=== PATIENT | female | born 1995 ===

== ENCOUNTER 2021-11-05 11:18 | Emergency (ER) | payer SELFPAY ==
[2021-11-05] MEDS ORDERED: HYDROmorphone 1 MG/ML Syringe IVPUSH STA (12:45)
[2021-11-05] MEDS ORDERED: Sodium Chloride 0.9% 1,000 ML IV SCH (12:45)
[2021-11-05] MEDS ORDERED: Sodium Chloride 0.9% 10 ML Syringe FLUSH PRN ×2 (12:45→13:54)
[2021-11-05] MEDS ORDERED: Ondansetron 4 MG/2 ML SDV IVPUSH ONE (12:45)
[2021-11-05 13:29] LABS: ESTIMATED GFR 122 mL/min (>60)
[2021-11-05] MEDS ORDERED: Iopamidol 612 MG/ML 100 ML Bottle IVPUSH ONE (13:54)
== END 2021-11-05 15:30 | disposition home or self-care (01) ==
LOC: JD.ED 11:18
DX: I88.0 Nonspecific mesenteric lymphadenitis (principal)
CPT/HCPCS: 36415; 74177; 80053; 81001; 81025; 83690; 85025; 86140; 96360; 99284; J3490; J7030; Q9967